=== PATIENT | female | born 1980 | race Caucasian/White ===

== ENCOUNTER → 2020-11-08 | Outpatient (CLI) | payer MEDICARE, OTHER | LOC: EMI 09:00 | DX: G35 Multiple sclerosis (principal); R53.82 Chronic fatigue, unspecified; F41.8 Other specified anxiety disorders; G47.19 Other hypersomnia; N31.9 Neuromuscular dysfunction of bladder, unspecified; R90.82 White matter disease, unspecified | CPT/HCPCS: 70553; A9577 ==